=== PATIENT | female | born 1995 | race Caucasian/White ===

== ENCOUNTER → 2020-08-14 | Outpatient (REF) | payer OTHER ==
[2020-08-14 14:14] LABS: HEMOGLOBIN A1c 5.3 %
[2020-08-14 14:23] LABS: FREE T4 1.02 NG/DL (0.76-1.46); GLUCOSE, FASTING 90 MG/DL (70-100)
[2020-08-14 14:24] LABS: PROGESTERONE 0.21 NG/ML; PROLACTIN 5.2 NG/ML; TOTAL 25(OH) VITAMIN D 13.9 NG/ML (30.0-100.0)
[2020-08-14 14:25] LABS: FOLLICLE STIMULATING HORMONE 7.4 mIU/mL; LUTEINIZING HORMONE 9.6 mIU/mL
[2020-08-15 09:13] LABS: HCG, SERUM QUALITATIVE NEGATIVE (NEGATIVE)
[2020-08-21 17:16] LABS: 17 HYDROXY PROGESTERONE 49 ng/dL (.); INSULIN FREE 29 uU/mL (.); INSULIN TOTAL2 29 uU/mL (.); TESTOSTERONE FREE (DIRECT) 1.9 pg/mL (0.0-4.2)
== END ==
LOC: M PLALAB 10:05
PROVIDERS: ATTEND Advanced Practice Midwife
DX: N92.6 Irregular menstruation, unspecified (principal)
CPT/HCPCS: 36415; 82306; 82627; 83036; 83498; 83525; 83527; 84402; 84403; 84439; 84443; 84703; 90791; G0123; G0463

== ENCOUNTER → 2020-08-23 | Outpatient (CLI) | payer OTHER ==
[2020-08-23 13:29] LABS: HEMOGLOBIN A1c 5.2 %
== END ==
LOC: M PLALAB 10:56
PROVIDERS: ATTEND Advanced Practice Midwife
DX: N92.6 Irregular menstruation, unspecified (principal)

== ENCOUNTER → 2020-09-12 | Outpatient (CLI) | payer OTHER ==
[2020-09-12 15:54] LABS: FOLLICLE STIMULATING HORMONE 7.8 mIU/mL; LUTEINIZING HORMONE 12.4 mIU/mL
== END ==
LOC: M PLALAB 13:11
PROVIDERS: ATTEND Advanced Practice Midwife
DX: N92.6 Irregular menstruation, unspecified (principal)

== ENCOUNTER → 2020-10-31 | Outpatient (CLI) | payer OTHER ==
[~2020-10-31] MED LIST: ISOVUE-370 76% 100ML VIAL As Ordered ONE
--- NOTE | 2020-10-31 13:10 | REP ---
INDICATION: TYPE 2 DIABETES MELLITUS W DIABETIC CHRONIC KIDNEY DISEASE. COMPARISON: None. TECHNIQUE: The endometrium is cannulated by the attending underwater welder. Fluoroscopic guidance is provided during contrast injection and intermittent spot filming is acquired. 1.3 minutes of fluoroscopy time is utilized. FINDINGS: The endometrial cavity is abnormal with multiple submucosal indentations consistent with small mid submucosal masses. There is evidence of synechiae formation along the left lateral margin of the endometrial cavity. The left fallopian tube is abnormal and appears doubled back upon itself and its isthmic segment is somewhat dilated. The ampullary segment is never opacified on the left. On the right there is sluggish filling of normal isthmic and ampullary segment and peritoneal spillage was eventually noted on the right.. IMPRESSION: Unilateral right-sided fallopian tube patency. Abnormal endometrial cavity with multiple submucosal masses and left sided synechiae. Mild left-sided high hydrosalpinx and left-sided tubal occlusion.. <Electronically signed by Eliazar Gamboa > 10/31/20 [id number]
== END ==
LOC: M RADPRO 11:48
PROVIDERS: ATTEND Obstetrics & Gynecology
DX: N97.9 Female infertility, unspecified (principal)
CPT/HCPCS: 58340; 74740; 81025; Q9967

== ENCOUNTER → 2020-11-14 | Outpatient (CLI) | payer OTHER ==
--- NOTE | 2020-11-14 14:12 | REP ---
INDICATION: N97.9 FEMALE INFERTILITY,UNEXPLAINED. COMPARISON: None. TECHNIQUE: Transabdominal and transvaginal scanning performed. FINDINGS: Uterine dimensions are 10.8 x 4.2 x 6.3 cm. Endometrial echo is 21 mm in AP dimension and centrally placed. There is no endometrial fluid collection. There are multiple nabothian cysts in the cervix. The bladder measures 9.5 x 9.0 x 4.7. The right ovary has dimensions of 3.7 x 2.3 x 3.5 cm. It's Doppler flow is normal with a resistive index of 0.44. The left ovary dimensions are 4.5 x 3.0 x 4.1 cm. It's Doppler flow was normal with resistive index of 0.53. In the left ovary a dominant follicle containing a septation measures 1.9 cm. An oval echogenic area in the left ovary may represent a dermoid measuring 1.4 x 1.6 x 2.0 cm. A cystic structure along the lateral margin of the left ovary contains a septation and measures 2.8 x 2.6 x 2.1 cm. No free fluid is seen in the cul-de-sac. IMPRESSION: Thickened endometrium 21 mm. Oval echogenic area in the left ovary could represent a dermoid 2 cm in diameter. A cyst along the lateral margin of the left ovary contains a septation and measures 2.8 cm in maximum diameter. <Electronically signed by Zoltan Rae > 11/14/20 [id number]
== END ==
LOC: M WHC 13:05
PROVIDERS: ATTEND Obstetrics & Gynecology
DX: N97.9 Female infertility, unspecified (principal); N83.202 Unspecified ovarian cyst, left side

== ENCOUNTER 2021-05-04 22:58 | Emergency (ER) | payer OTHER ==
[~2021-05-04] VITALS: Ht 160 cm; Wt 76.7 kg
[2021-05-04] MEDS ORDERED: AUGM875T28 PO (23:03)
[2021-05-05] MEDS ORDERED: ACETAMINOPHEN 325 MG TAB PO ONE (00:10)
[2021-05-05] MEDS ORDERED: NS 1,000 ML IV ONE (00:10)
[2021-05-05 00:40] LABS: BASO % 0.4 % (0.0-1.0); EOS # 0.1 10^3/uL (0.0-0.5); EOS % 0.7 % (0.0-3.0); HEMATOCRIT 36.8 % (36.0-47.0); HEMOGLOBIN 12.2 g/dl (12.0-15.5); LYMPH # 3.2 10^3/uL (1.5-5.0); LYMPH % 30.9 % (24.0-44.0); MEAN CORPUSCULAR HEMOGLOBIN 25.2 pg (27.0-33.0); MEAN CORPUSCULAR HGB CONC 33.2 g/dl (32.0-36.5); MEAN CORPUSCULAR VOLUME 75.9 fl (80.0-96.0); MONO # 0.5 10^3/uL (0.0-0.8); MONO % 5.2 % (2.0-8.0); NEUTROPHILS # 6.4 10^3/uL (1.5-8.5); NEUTROPHILS % 62.4 % (36.0-66.0); PLATELET COUNT, AUTOMATED 271 10^3/uL (150-450); RED BLOOD COUNT 4.85 10^6/uL (4.00-5.40); WHITE BLOOD COUNT 10.3 10^3/uL (4.0-10.0)
[2021-05-05 01:07] LABS: ERYTHROCYTE SEDIMENTATION RATE 46 mm/hr (0-20)
[2021-05-05 01:23] LABS: BLOOD UREA NITROGEN 9 MG/DL (7-18); C REACTIVE PROTEIN QUANTITATIV 1.51 MG/DL (0.00-0.30); CARBON DIOXIDE LEVEL 27 MEQ/L (21-32); CHLORIDE LEVEL 106 MEQ/L (98-107); CREATININE FOR GFR 0.86 MG/DL (0.55-1.30); GLOMERULAR FILTRATION RATE > 60.0 (>60); GLUCOSE, FASTING 98 MG/DL (70-100); POTASSIUM SERUM 4.2 MEQ/L (3.5-5.1); SODIUM LEVEL 137 MEQ/L (136-145)
[2021-05-05] MEDS ORDERED: ISOVUE-370 76% 100ML VIAL As Ordered ONE (01:42)
--- NOTE | 2021-05-05 01:44 | REPVR ---
PROCEDURE INFORMATION: Exam: XR Chest Exam date and time: 05/05/2021 1:02 AM Age: 26 years old Clinical indication: Cough; Additional info: Cough, chest tightness TECHNIQUE: Imaging protocol: XR of the chest. Views: 2 views. COMPARISON: No relevant prior studies available. FINDINGS: Lungs: Unremarkable. No consolidation. Pleural spaces: Unremarkable. No pleural effusion. No pneumothorax. Heart/Mediastinum: Unremarkable. No cardiomegaly. Bones/joints: Unremarkable. IMPRESSION: No acute infiltrates. Electronically signed by: Murray Guillen On 05/05/2021 01:44:14 AM
--- NOTE | 2021-05-05 01:44 | REPVR ---
PROCEDURE INFORMATION: Exam: CT Head Without Contrast Exam date and time: 05/05/2021 12:56 AM Age: 26 years old Clinical indication: Other: Pressure in head, headache TECHNIQUE: Imaging protocol: Computed tomography of the head without contrast. Radiation optimization: All CT scans at this facility use at least one of these dose optimization techniques: automated exposure control; mA and/or kV adjustment per patient size (includes targeted exams where dose is matched to clinical indication); or iterative reconstruction. COMPARISON: No relevant prior studies available. FINDINGS: Brain: Normal. No hemorrhage. Unremarkable white matter. No mass effect. Cerebral ventricles: No ventriculomegaly. Paranasal sinuses: Visualized sinuses are unremarkable. No fluid levels. Mastoid air cells: Visualized mastoid air cells are well aerated. Bones/joints: Unremarkable. No acute fracture. Soft tissues: Unremarkable. IMPRESSION: No acute intracranial abnormality. Electronically signed by: Murray Guillen On 05/05/2021 01:43:50 AM
[2021-05-05 01:49] LABS: CK-MB VALUE MASS < 1.0 NG/ML (<3.6); CPK CREATINE PHOSPHOKINASE 72 U/L (26-192); MB/CK RELATIVE INDEX 1.39 (< OR =4); TROPONIN I < 0.02 NG/ML (< 0.10)
--- NOTE | 2021-05-05 02:11 | REPVR ---
PROCEDURE INFORMATION: Exam: CTA Chest With Contrast Exam date and time: 05/05/2021 1:51 AM Age: 26 years old Clinical indication: Other: SOB, elevated d dimer TECHNIQUE: Imaging protocol: Computed tomographic angiography of the chest with contrast. 3D rendering (Not supervised by radiologist): MIP and/or 3D reconstructed images were created by the technologist. Radiation optimization: All CT scans at this facility use at least one of these dose optimization techniques: automated exposure control; mA and/or kV adjustment per patient size (includes targeted exams where dose is matched to clinical indication); or iterative reconstruction. Contrast material: ISOVUE 370; Contrast volume: 75 ml; Contrast route: INTRAVENOUS (IV); COMPARISON: CR Chest, 2 view PA, Lat 05/05/2021 12:47 AM FINDINGS: Pulmonary arteries: Normal. No pulmonary emboli. Aorta: Unremarkable. No aortic aneurysm. No aortic dissection. Bronchial tree: Diffuse bronchial wall thickening. Lungs: Unremarkable. No consolidation. No masses. Pleural spaces: Unremarkable. No pneumothorax. No pleural effusion. Heart: Unremarkable. No cardiomegaly. No pericardial effusion. Lymph nodes: Unremarkable. No enlarged lymph nodes. Bones/joints: Unremarkable. No acute fracture. Soft tissues: Unremarkable. IMPRESSION: 1. Negative for pulmonary emboli. 2. Findings consistent with acute bronchitis. Electronically signed by: Murray Guillen On 05/05/2021 02:10:35 AM
[2021-05-05] MEDS ORDERED: VENTAER INH (02:15)
[2021-05-05] MEDS ORDERED: PRED20TA PO (02:15)
[2021-05-05 02:30] VITALS: BP 126/65
== END 2021-05-05 02:31 | disposition home or self-care (01) ==
LOC: M ED 22:58
DX: J20.8 Acute bronchitis due to other specified organisms (principal); R79.9 Abnormal finding of blood chemistry, unspecified; J45.909 Unspecified asthma, uncomplicated
CPT/HCPCS: 70450; 71046; 71275; 80048; 82550; 82553; 84484; 84702; 85025; 85379; 85652; 86140; 87798; 87880; 96360; 99284; Q9967

== ENCOUNTER → 2021-06-23 | Outpatient (CLI) | payer OTHER ==
[~2021-06-23] MED LIST changes: +AUGM875T28 PO; -ISOVUE-370 76% 100ML VIAL As Ordered ONE; +PRED20TA PO; +VENTAER INH
--- NOTE | 2021-06-25 06:54 | REP ---
INDICATION: LEFT OVARIAN CYST COMPARISON: 11/14/2020 TECHNIQUE: Transabdominal pelvic ultrasound followed by transvaginal examination for better evaluation of the endometrium and adnexa with color Doppler evaluation of the ovaries. FINDINGS: Bladder is unremarkable and measures 12.0 x 7.6 x 10.0 cm. Normal anteverted uterus measures 13.4 x 3.8 x 5.9 cm. The endometrial complex measures 13.3 mm thickness. Cluster of nabothian cyst in the lower uterine segment are identified each measuring less than 8 mm diameter. Bilateral ovaries are normal in appearance and vascularity without evidence for torsion. Right ovary measures 3.9 x 2.4 x 2.7 cm; R I = 0.56. Left ovary measures 3.9 x 3.0 x 4.0 cm; R I = 0.59. A large tubular structure in the left adnexa measuring roughly 6.0 x 5.0 x 3.4 cm maximal diameter suggests hydrosalpinx and appears increased from prior examination IMPRESSION: 1. Mildly enlarged uterus with cluster of nabothian cysts in the lower uterine segment. 2. Bilateral ovaries are normal in appearance and vascularity. 3. Enlarging tubular cystic area in the left adnexa suspicious for hydrosalpinx. <Electronically signed by Oswaldo Rodriguez > 06/25/21 [id number]
== END ==
LOC: M WHC 10:41
PROVIDERS: ATTEND Obstetrics & Gynecology
DX: N83.202 Unspecified ovarian cyst, left side (principal)

== ENCOUNTER → 2021-08-20 | Outpatient (CLI) | payer OTHER | LOC: M PLALAB 08:45 | PROVIDERS: ATTEND Obstetrics & Gynecology | DX: N97.9 Female infertility, unspecified (principal) ==

== ENCOUNTER 2021-08-28 22:42 | Emergency (ER) | payer OTHER ==
[~2021-08-28] VITALS: Ht 160 cm; Wt 77.9 kg
[2021-08-29 03:04] VITALS: BP 102/62
== END 2021-08-29 04:10 | disposition left against medical advice (07) ==
LOC: M ED 22:42
DX: Z53.21 Procedure and treatment not carried out due to patient leaving prior to being seen by health care provider (principal)

== ENCOUNTER 2021-08-30 23:57 | Emergency (ER) | payer OTHER ==
[~2021-08-30] VITALS: Ht 160 cm; Wt 76.8 kg
[2021-08-31] VITALS: BP 117/73
== END 2021-08-31 06:00 | disposition left against medical advice (07) ==
LOC: M ED 23:57
DX: Z53.29 Procedure and treatment not carried out because of patient's decision for other reasons (principal)

== ENCOUNTER 2021-12-31 09:39 | Emergency (ER) | payer OTHER ==
[~2021-12-31] VITALS: Ht 160 cm; Wt 72.1 kg
[~2021-12-31 09:39] MED LIST changes: +ONDA4TAB6 PO; +PERC5TAB12 PO
[2021-12-31] MEDS ORDERED: ONDANSETRON 4MG/2ML VIAL IV ONE (11:50)
[2021-12-31] MEDS ORDERED: MORPHINE 4 MG/ML 1ML VIAL/SYRINGE IV ONE (11:50)
[2021-12-31 12:23] LABS: BASO % 0.2 % (0.0-1.0); HEMATOCRIT 35.8 % (36.0-47.0); HEMOGLOBIN 11.2 g/dl (12.0-15.5); LYMPH # 2.3 10^3/uL (1.5-5.0); LYMPH % 24.3 % (24.0-44.0); MEAN CORPUSCULAR HEMOGLOBIN 21.9 pg (27.0-33.0); MEAN CORPUSCULAR HGB CONC 31.3 g/dl (32.0-36.5); MEAN CORPUSCULAR VOLUME 70.1 fl (80.0-96.0); MONO # 0.4 10^3/uL (0.0-0.8); MONO % 4.2 % (2.0-8.0); NEUTROPHILS # 6.8 10^3/uL (1.5-8.5); NEUTROPHILS % 71.1 % (36.0-66.0); PLATELET COUNT, AUTOMATED 324 10^3/uL (150-450); RED BLOOD COUNT 5.11 10^6/uL (4.00-5.40); WHITE BLOOD COUNT 9.5 10^3/uL (4.0-10.0)
[2021-12-31 12:47] LABS: ALBUMIN 4.3 GM/DL (3.2-5.2); ALT/SGPT 102 U/L (12-78); BILIRUBIN,DIRECT 0.1 MG/DL (0.0-0.2); BILIRUBIN,TOTAL 0.4 MG/DL (0.2-1.0); BLOOD UREA NITROGEN 10 MG/DL (7-18); CALCIUM LEVEL 9.7 MG/DL (8.5-10.1); CARBON DIOXIDE LEVEL 30 MEQ/L (21-32); CHLORIDE LEVEL 103 MEQ/L (98-107); CREATININE FOR GFR 0.87 MG/DL (0.55-1.30); GLOMERULAR FILTRATION RATE > 60.0 (>60); GLUCOSE, FASTING 88 MG/DL (70-100); POTASSIUM SERUM 3.7 MEQ/L (3.5-5.1); SODIUM LEVEL 137 MEQ/L (136-145); TOTAL PROTEIN 8.5 GM/DL (6.4-8.2)
[2021-12-31] MEDS ORDERED: PERC5TAB12 PO (13:36)
[2021-12-31 14:12] VITALS: BP 112/67
== END 2021-12-31 14:16 | disposition home or self-care (01) ==
LOC: M ED 09:39
DX: N83.292 Other ovarian cyst, left side (principal); J45.909 Unspecified asthma, uncomplicated
CPT/HCPCS: 76830; 76856; 80048; 80076; 81001; 84702; 85025; 93976; 96374; 96375; 99284; J2270; J2405

== ENCOUNTER → 2022-01-13 | Outpatient (CLI) | payer OTHER | LOC: M PLALAB 10:27 | PROVIDERS: ATTEND Obstetrics & Gynecology | DX: N83.202 Unspecified ovarian cyst, left side (principal) ==

== ENCOUNTER → 2022-01-21 | Outpatient (CLI) | payer OTHER ==
[~2022-01-21] MED LIST changes: +ERGO500029 PO; +FERR325T82 PO
== END ==
LOC: M LABSMTC 09:38
PROVIDERS: ATTEND Anesthesiology
DX: Z11.52 Encounter for screening for COVID-19 (principal); Z20.822 Contact with and (suspected) exposure to COVID-19

== ENCOUNTER 2022-01-26 06:04 | Day surgery (SDC) | payer OTHER ==
[~2022-01-26] VITALS: Ht 160 cm; Wt 72.6 kg
[~2022-01-26 06:04] MED LIST changes: +LR 1,000 ML IV SCH
[2022-01-26] MEDS ORDERED: SCOPOLAMINE 1MG TRANSDERMAL PATCH TOP ONE (06:35)
[2022-01-26] MEDS ORDERED: LR 1,000 ML IV SCH ×2 (06:35→10:55)
[2022-01-26 07:04] LABS: HEMATOCRIT 32.5 % (36.0-47.0); HEMOGLOBIN 9.8 g/dl (12.0-15.5); MEAN CORPUSCULAR HEMOGLOBIN 22.2 pg (27.0-33.0); MEAN CORPUSCULAR HGB CONC 30.2 g/dl (32.0-36.5); MEAN CORPUSCULAR VOLUME 73.5 fl (80.0-96.0); PLATELET COUNT, AUTOMATED 258 10^3/uL (150-450); RED BLOOD COUNT 4.42 10^6/uL (4.00-5.40); WHITE BLOOD COUNT 6.8 10^3/uL (4.0-10.0)
[2022-01-26] MEDS ORDERED: SILVER NITRATE APPLICATOR (1 = QTY 10) As Ordered ONE (07:10)
[2022-01-26] MEDS ORDERED: BUPIVACAINE HCL 0.25% 30ML VIAL As Ordered ONE (07:11)
[2022-01-26] MEDS ORDERED: METHYLENE BLUE 0.5% (5MG/ML) 10 ML AMP (PROVAYBLUE) As Ordered ONE (07:12)
[2022-01-26] MEDS ORDERED: fentaNYL 250 MCG/5 ML INJECTION As Ordered ONE (08:04)
[2022-01-26] MEDS ORDERED: ROCURONIUM BROMIDE 50 MG/5 ML VIAL As Ordered ONE ×2 (08:04→09:17)
[2022-01-26] MEDS ORDERED: propofoL 200 MG/20 ML VIAL As Ordered ONE (08:04)
[2022-01-26] MEDS ORDERED: ONDANSETRON 4MG/2ML VIAL As Ordered ONE (08:04)
[2022-01-26] MEDS ORDERED: MIDAZOLAM INJ 2MG/2ML VIAL (J2250 PER 1MG) As Ordered ONE (08:04)
[2022-01-26] MEDS ORDERED: LIDOCAINE 2% 100MG/5ML SDV (FOR ANES.) As Ordered ONE (08:04)
[2022-01-26] MEDS ORDERED: dexameTHASONE 4 MG/ML 1ML VIAL (J1100 PER 1MG) As Ordered ONE (08:04)
[2022-01-26] MEDS ORDERED: SUGAMMADEX SODIUM 500 MG/5 ML VIAL (BRIDION) As Ordered ONE (08:22)
[2022-01-26] MEDS ORDERED: KETOROLAC 60MG 2ML VIAL As Ordered ONE (08:22)
[2022-01-26] MEDS ORDERED: ceFAZolin 2 GM/D5W 50 ML IV BAG (J0690 PER 500MG) As Ordered ONE (10:23)
[2022-01-26] MEDS ORDERED: oxyCODONE 5MG TAB PO PRN (10:55)
[2022-01-26] MEDS ORDERED: MORPHINE 2 MG/ML 1ML VIAL IV PRN (10:55)
[2022-01-26] MEDS ORDERED: INSULIN LISPRO (NovoLOG) PER UNIT SC PRN (10:55)
[2022-01-26] MEDS ORDERED: fentaNYL 100 MCG/2 ML INJECTION IV PRN (10:55)
[2022-01-26] MEDS ORDERED: ONDANSETRON 4MG/2ML VIAL IV PRN ×2 (10:55→12:05)
[2022-01-26] MEDS ORDERED: OXYC1TAB23 PO (11:56)
[2022-01-26] MEDS ORDERED: IBUP1TAB7 PO (11:57)
[2022-01-26] MEDS ORDERED: COLA100C5 PO (11:58)
[2022-01-26] MEDS ORDERED: ONDA4TAB6 PO (11:58)
[2022-01-26] MEDS ORDERED: diphenhydrAMINE 50MG/ML VIAL (J1200) IV PRN (12:05)
[2022-01-26] MEDS ORDERED: KETOROLAC 30 MG/ML 1ML VIAL IV PRN (12:05)
[2022-01-26] MEDS ORDERED: PERCOCET 5MG/325MG TAB PO PRN (12:05)
[2022-01-26 15:30] VITALS: BP 118/67
== END 2022-01-26 16:08 | disposition home or self-care (01) ==
LOC: M SDC 06:04
PROVIDERS: ATTEND Obstetrics & Gynecology
DX: N83.02 Follicular cyst of left ovary (principal); J45.909 Unspecified asthma, uncomplicated; Z79.899 Other long term (current) drug therapy
CPT/HCPCS: 36415; 58661; 81025; 85027; 86850; 86900; 86901; 88307; J0690; J1100; J1885; J2250; J2405; J3010; S2900

== ENCOUNTER → 2022-05-27 | Outpatient (CLI) | payer OTHER ==
[~2022-05-27] MED LIST changes: +COLA100C5 PO; +IBUP1TAB7 PO; -LR 1,000 ML IV SCH; +OXYC1TAB23 PO
== END ==
LOC: M PLALAB 11:58
PROVIDERS: ATTEND Obstetrics & Gynecology
DX: Z32.01 Encounter for pregnancy test, result positive (principal)

== ENCOUNTER → 2022-06-23 | Outpatient (CLI) | payer OTHER ==
[2022-06-23 17:57] LABS: HEMOGLOBIN 11.8 g/dl (12.0-15.5); MEAN CORPUSCULAR HEMOGLOBIN 28.4 pg (27.0-33.0); MEAN CORPUSCULAR HGB CONC 33.7 g/dl (32.0-36.5); MEAN CORPUSCULAR VOLUME 84.3 fl (80.0-96.0); PLATELET COUNT, AUTOMATED 284 10^3/uL (150-450); RED BLOOD COUNT 4.15 10^6/uL (4.00-5.40); WHITE BLOOD COUNT 10.3 10^3/uL (4.0-10.0)
[2022-06-23 19:36] LABS: HEPATITIS C VIRUS ABY INDEX < 0.0 INDEX (<0.8); HIV 1&2 SCREEN CENTAUR NEGATIVE (NEGATIVE)
[2022-06-24 12:32] LABS: GC DNA AMPLIFICATION NEGATIVE (NEGATIVE)
== END ==
LOC: M PLALAB 14:47
PROVIDERS: ATTEND Obstetrics & Gynecology
DX: Z34.91 Encounter for supervision of normal pregnancy, unspecified, first trimester (principal)

== ENCOUNTER → 2022-08-06 | Outpatient (CLI) | payer OTHER | LOC: M WHC 07:00 | PROVIDERS: ATTEND Obstetrics & Gynecology | DX: Z34.92 Encounter for supervision of normal pregnancy, unspecified, second trimester (principal); Z31.9 Encounter for procreative management, unspecified ==

== ENCOUNTER → 2022-09-10 | Outpatient (CLI) | payer OTHER | LOC: M WHC 12:03 | PROVIDERS: ATTEND Obstetrics & Gynecology | DX: Z34.92 Encounter for supervision of normal pregnancy, unspecified, second trimester (principal); Z3A.24 24 weeks gestation of pregnancy ==

== ENCOUNTER → 2022-09-24 | Outpatient (CLI) | payer OTHER ==
[2022-09-24 14:09] LABS: HEMATOCRIT 33.6 % (36.0-47.0); HEMOGLOBIN 10.6 g/dl (12.0-15.5); MEAN CORPUSCULAR HEMOGLOBIN 27.3 pg (27.0-33.0); MEAN CORPUSCULAR HGB CONC 31.5 g/dl (32.0-36.5); MEAN CORPUSCULAR VOLUME 86.6 fl (80.0-96.0); PLATELET COUNT, AUTOMATED 252 10^3/uL (150-450); RED BLOOD COUNT 3.88 10^6/uL (4.00-5.40); WHITE BLOOD COUNT 11.4 10^3/uL (4.0-10.0)
== END ==
LOC: M PLALAB 09:57
PROVIDERS: ATTEND Obstetrics & Gynecology
DX: Z34.92 Encounter for supervision of normal pregnancy, unspecified, second trimester (principal)